=== PATIENT | male | born 1945 | race Two or more races ===

== ENCOUNTER 2017-06-14 07:53 | Inpatient (IN) | payer OTHER ==
[~2017-06-14] VITALS: Ht 182.9 cm; Wt 79.4 kg
[2017-06-14] MEDS ORDERED: MIDAZOLAM HCL 2 MG/2ML VIAL ONE (09:37)
[2017-06-14] MEDS ORDERED: FENTANYL PF 100MCG/2ML AMPUL ONE (09:37)
[2017-06-14] MEDS ORDERED: TRANEXAMIC ACID 3,000 MG in SODIUM CHLORIDE IRRIG SOLUTION 70 ML IR ONE (10:00)
[2017-06-14] MEDS ORDERED: BACITRACIN 50000 UNITS/VIAL ONE (10:08)
[2017-06-14 12:00] VITALS: BP 138/70
[2017-06-14 12:30] VITALS: BP 141/79
[2017-06-14] MEDS ORDERED: COLACE 250 MG CAPSULE PO PRN (12:30)
[2017-06-14] MEDS ORDERED: AMBIEN 5 MG TABLET PO PRN (12:30)
[2017-06-14] MEDS ORDERED: HYDROMORPHONE 1 MG/1 ML DISP.SYRIN IV PRN (12:30)
[2017-06-14] MEDS ORDERED: HYDROCODONE/APAP 5/325MG 1 EACH TABLET PO PRN ×3 (12:30→18:00)
[2017-06-14] MEDS ORDERED: IV LR 1000 ML 1,000 ML IV PRN (12:30)
[2017-06-14] MEDS ORDERED: DULCOLAX 10 MG/SUPP.RECT RC PRN (12:30)
[2017-06-14] MEDS ORDERED: TYLENOL 650 MG TABLET PO PRN (12:30)
[2017-06-14] MEDS ORDERED: ZOFRAN 4mg/2ML IV PRN (12:30)
[2017-06-14] MEDS ORDERED: SENOKOT 8.6 MG TABLET PO PRN (12:30)
[2017-06-14] MEDS ORDERED: OLME40TA3 PO (14:17)
[2017-06-14 16:00] VITALS: BP 150/77
[2017-06-14] MEDS ORDERED: MORPHINE SULFATE INJ 10 MG/ML DISP.SYRIN IV PRN (16:30)
[2017-06-14] MEDS ORDERED: CLONIDINE HCL 0.1 MG TABLET PO PRN (16:30)
[2017-06-14] MEDS ORDERED: diphenhydrAMINE HCL 25 MG CAPSULE PO PRN (16:30)
[2017-06-14] MEDS ORDERED: MAG HYDROX/AL HYDROX/SIMETH 30 ML UDC PO PRN ×2 (16:30→18:00)
[2017-06-14] MEDS: oxyCODONE IR immediate release 5 MG CAPSULE PO PRN ×2 (17:30→20:21)
[2017-06-14] MEDS: DOCUSATE SODIUM 100 MG CAPSULE PO SCH (17:30)
[2017-06-14] MEDS: RIVAROXABAN 10 MG TABLET PO SCH (17:31)
[2017-06-14] MEDS ORDERED: MAGNESIUM HYDROXIDE 30 ML UDC PO PRN (18:00)
[2017-06-14] MEDS ORDERED: ACETAMINOPHEN 325 MG TABLET PO PRN (18:00)
[2017-06-14] MEDS ORDERED: Z GUARD REMEDY 2 OZ OINT TP PRN (18:00)
[2017-06-14] MEDS ORDERED: ONDANSETRON HCL/PF 4 MG/2 ML VIAL IVP PRN (18:00)
[2017-06-14] MEDS ORDERED: ZOLPIDEM TARTRATE 5 MG TABLET PO PRN (18:00)
[2017-06-14] MEDS: LOSARTAN POTASSIUM 50 MG TABLET PO SCH (18:50)
--- NOTE | 2017-06-14 19:30 | NUR ---
MS/LENS MATCHER; RECEIVED IN BED SLEEPING. BREATHING NON LABORED. HL INTACT. WITH O2 2L NC ON. WITH FC INTACT CLEAR YELLOW URINE. RT HI DRESSING INTACT WITH ABDUCTION PILLOW IN BETWEEN LEGS. BED ON LOWER POSITION AND LOCKED FOR SAFETY. SIDE RAILS ARE UP FOR SAFETY. WILL CONTINUE TO MONITOR. CALL LIGHT WITHIN REACH.
[2017-06-14 20:00] VITALS: BP 145/76
--- NOTE | 2017-06-14 20:20 | NUR ---
MS/GLASS SCULLION; OXY IR 15 MG PO Q3 PRN GIVEN FOR C/O PAIN RT HIP.
[2017-06-14] MEDS: ANCEF 1 G in IV D5W 50 ML IV SCH ×2 (20:37→20:50)
[2017-06-14] MEDS: PANTOPRAZOLE 40 MG TABLET.DR PO SCH (22:05)
[2017-06-15] MEDS: ANCEF 1 G in IV D5W 50 ML IV SCH (03:52)
[2017-06-15] MEDS: oxyCODONE IR immediate release 5 MG CAPSULE PO PRN ×3 (05:55→21:18)
--- NOTE | 2017-06-15 05:55 | NUR ---
MS/EDGER TECHNICIAN; C/O PAIN RT HIP , BP 130/ 56 ; OXY IR 10 MG PO Q3 PRN GIVEN.
[2017-06-15 06:53] LABS: BASOPHILS % (AUTO) 0.3 % (0.0-2.0); EOSINOPHILS % (AUTO) 0.6 % (0.0-6.0); HEMATOCRIT 29 % (39-51); HEMOGLOBIN 9.8 g/dL (13.5-17.5); LYMPHOCYTES # (AUTO) 0.8 /CMM (0.8-4.8); LYMPHOCYTES % (AUTO) 10.9 % (20.0-44.0); MEAN CORPUSCULAR HEMOGLOBIN 30 PG (26.0-33.0); MEAN CORPUSCULAR HGB CONC 34 g/dl (31.0-36.0); MEAN CORPUSCULAR VOLUME 89 fL (80-96); MONOCYTES # (AUTO) 1.1 /CMM (0.1-1.30); MONOCYTES % (AUTO) 14.9 % (2.0-12.0); NEUTROPHILS # (AUTO) 5.2 /CMM (1.8-8.9); NEUTROPHILS % (AUTO) 73.3 % (43.0-81.0); PLATELET COUNT (AUTO) 208 /CMM (150-450); RDW COEFFICIENT OF VARIATION 16.3 (11.5-15.0); RED BLOOD CELL COUNT(AUTO) 3.24 MIL/uL (4.5-6.0); WHITE BLOOD COUNT (AUTO) 7.1 K/uL (4.3-11.0)
--- NOTE | 2017-06-15 07:00 | NUR ---
MS/WASTEWATER MANAGER; SLEPT FAIRLY. BREATHING NON LABORED. WILL ENDORSE TO THE DAY SHIFT NURSE.
[2017-06-15 07:16] LABS: ALANINE AMINOTRANSFERASE 19 U/L (12-78); ALBUMIN 3.1 g/dL (3.4-5.0); ALKALINE PHOSPHATASE 68 U/L (46-116); ASPARTATE AMINOTRANSFERASE 24 U/L (15-37); BILIRUBIN,TOTAL 0.7 mg/dL (0.2-1.0); CALCIUM, SERUM 9.5 mg/dL (8.5-10.1); CARBON DIOXIDE 31 mmol/L (21-32); CHLORIDE 102 mmol/L (98-107); GLUCOSE 127 mg/dL (74-106); MAGNESIUM 1.9 mg/dL (1.8-2.4); PHOSPHORUS 3.8 mg/dL (2.5-4.9); POTASSIUM 4.8 mmol/L (3.5-5.1); SODIUM SERUM 136 mmol/L (136-145); TOTAL PROTEIN, SERUM 5.9 g/dL (6.4-8.2); UREA NITROGEN, BLOOD 15 mg/dL (7-18)
[2017-06-15 07:30] LABS: CHOLESTEROL 101 mg/dL (<200); HDL CHOLESTEROL 52 mg/dL (40-60); LDL 41 mg/dL (0-99); TRIGLYCERIDES 38 mg/dL (30-150)
[2017-06-15 08:00] VITALS: BP 126/66
--- NOTE | 2017-06-15 08:00 | NUR ---
MS RN NOTES PATIENT IN BED RESTING NO SOB OR ACUTE DISTRESS NOTED. PERIPHERAL IV INTACT PATENT. PATIENT ALERT, ORIENTED COMPLAINING OF PAIN 8/10 TO RIGHT HIP. PATIENT PREFERS PO PILL FOR PAIN CONTROL. PATIENTS BED IN LOW LOCKED POSITION. CALL LIGHT WITHIN REACH WILL CONTINUE TO MONITOR.
[2017-06-15] MEDS: DOCUSATE SODIUM 100 MG CAPSULE PO SCH ×2 (08:11→17:07)
[2017-06-15] MEDS: LOSARTAN POTASSIUM 50 MG TABLET PO SCH (08:13)
[2017-06-15] MEDS: IV D5/0.45 NACL 1,000 ML IV PRN ×2 (09:38→23:57)
--- NOTE | 2017-06-15 10:30 | NUR ---
MS RN NOTES PATIENT SEEN BY DR. JACKSON WAITING FOR PT, PER DOCTOR MANUEL ADMINISTER MORPHINE 4MG IV FOR PATIENTS COMFORT DURING PT. NOTED AND ADMINISTERED. WILL CONTINUE TO MONITOR.
--- NOTE | 2017-06-15 11:00 | NUR ---
MS RN NOTES PATIENT NOTED SITTING IN CHAIR IN HIS ROOM WITH PT AT BEDSIDE, UNRESPONSIVE , WITH COLD CLAMMY SKIN, PALE. PATIENT TRANSFERRED TO BED, VS CHECKED: BP 145/66 HR: 100, SATURATING AT 98%. PATIENT BS 144MG/DL. PATIENT NOTED TO OPEN EYES AND STARTED RESPONDING TO QUESTIONS. PATIENT PLACED ON MONITOR FOR OBSERVATION. DR. POE NOTIFIED ORDERS FOR STAT EKG. STARTED ON NASAL CANULA AT 2L/M . PATIENT NOTED TO RETURN TO NORMAL SELF. ALERT, ORIENTED X3. VS WNL. WILL CONTINUE TO MONITOR.
--- NOTE | 2017-06-15 11:50 | NUR ---
MS RN NOTES PATIENT IN BED RESTING ALERT, ORIENTED X3 NO SOB OR ACUTE DISTRESS NOTED. PATIENT SEEN AND EVALUATED BY MD ORDERS TO GIVE BOLUS NS , NOTED AND CARRIED OUT.
[2017-06-15 12:00] VITALS: BP 114/56
[2017-06-15] MEDS ORDERED: IV NS 0.9% 1,000 ML BAG IV ONE (12:00)
[2017-06-15 16:00] VITALS: BP 98/50
[2017-06-15] MEDS: RIVAROXABAN 10 MG TABLET PO SCH (17:08)
[2017-06-15] MEDS ORDERED: MORPHINE SULFATE INJ 10 MG/ML DISP.SYRIN IV PRN (17:30)
--- NOTE | 2017-06-15 18:21 | NUR ---
MS RN NOTES PATIENT IN BED RESTING NO SOB OR ACUTE DISTRESS NOTED. PATIENT ALERT, ORIENTED X4. PERIPHERAL IV INTACT PATENT. PATIENT REPORTS PAIN AT 5/10 REFUSES PAIN MEDICATION AT THIS TIME. EDUCATION PROVIDED ON BENEFITS AND PROPER USE ON NARCOTICS. ALL DUE MEDICATIONS ADMINISTERED. ALL NEEDS MET. WILL ENDORSE CARE TO PM SHIFT.
--- NOTE | 2017-06-15 19:30 | NUR ---
MS ALTA INITIAL NOTES RECEIVED REPORT FROM AM NURSE JESSICA AND SEEN PT LYING IN BED WITHOUT ANY DISCOMFORT NOTED. WATCHING TV AT THIS TIME. STILL WITH IVF OF D51/2 NS AT 75ML/HR ON HIS LEFT WRIST PATENT AND INTACT. ENCOURAGE HIM TO USED THE CALL LIGHT IF HE NEEDS SOME HELP OR NEED THE NURSE FOR PAIN MEDS. DRESSING DRY AND INTACT. AND HAVE ABDUCTION PILLOWS BETWEEN HIS LEGS. KEPT HIM WARM AND COMFORTABLE AT ALL TIMES. WILL CONTINUE TO MONITOR. PLACE CALL LIGHT AT REACH.
[2017-06-15 20:00] VITALS: BP 111/62
--- NOTE | 2017-06-15 21:20 | NUR ---
DICE SPOTTER/NOTES,C/O PAIN C/O RIGHT HIP PAIN 01/28, OXY -IR PO GIVEN ORDERED. KEPT HIM WARM AND COMFORTABLE AT ALL TIMES. RE-ASSESS LATER. PLACE CALL LIGHT AT REACH.
--- NOTE | 2017-06-15 22:20 | NUR ---
JUNIOR PROJECT COORDINATOR/NOTES RE- ASSESSMENT CHECKED PT SLEEPING COMFORTABLY IN BED AT THIS TIME. RESPIRATION EVEN AND NON-LABORED. IVF STILL INFUSING. KEPT HER WARM AND COMFORTABLE AT ALL TIMES. WILL CONTINUE TO MONITOR. PLACE CALL LIGHT AT REACH.
[2017-06-15] MEDS: PANTOPRAZOLE 40 MG TABLET.DR PO SCH (23:56)
[2017-06-16] VITALS: BP 118/62
--- NOTE | 2017-06-16 07:28 | NUR ---
MS GRINDER SET UP OPERATOR INTERNAL CLOSING NOTES PT BACK TO REST AFTER MORNING CARE DONE. STABLE BLANCHE THE NIGHT AND SLEPT WELL AFTER PAIN MEDS GIVEN . HEPLOCK AT THIS TIME BECAUSE PT TOLERATED PO WELL. ALL DUE MEDS GIVEN AND ALL NEEDS MET. KEPT HIM WARM AND COMFORTABLE AT ALL TIMES. PLACE CALL LIGHT AT REACH. ENDORSE TO AM NURSE FOR CONTINUITY OF CARE.
[2017-06-16 08:00] VITALS: BP 124/69
--- NOTE | 2017-06-16 08:00 | NUR ---
RN INITIAL NOTES: REC'D PT FROM [facility]. PT A/O X 4, NOT IN ANY DISTRESS, ABLE TO MAKE NEEDS KNOWN. ON O2 AT 2LPM/NC, NO SOB. PT S/P R THR 06/14/17 W/ DRESSING CLEAN, DRY & INTACT. HAS L WRIST G20 PL W/ D5 1/2 NS X 75 CC/HR INFUSING WELL. PROVIDED COMFORT & SAFETY MEASURES. BED KEPT LOW & IN LOCKED POS. CALL LIGHT PLACED W/IN REACH. WILL CONTINUE TO MONITOR & ATTEND PT'S NEEDS.
[2017-06-16] MEDS: DOCUSATE SODIUM 100 MG CAPSULE PO SCH ×2 (08:47→17:24)
[2017-06-16] MEDS: LOSARTAN POTASSIUM 50 MG TABLET PO SCH (08:47)
--- NOTE | 2017-06-16 09:30 | NUR ---
RN NOTES: PER DR. BAXTER MAY DC CURRENT IVF.
--- NOTE | 2017-06-16 10:30 | NUR ---
RN NOTES: POST THERAPY, WHILE PT SITTING ON THE BEDSIDE CHAIR, PT C/O LIGHTHEADEDNESS AND MOMENTARILY PASSED OUT. RAPID RESPONSE INITIATED BUT CANCELLED BECAUSE WHEN PT PUT BACK TO BED HE VERBALIZED THAT HE IS DOING OKAY. PT IS A/O X3, DENIES ANY DISTRESS/PAIN. PT PLACED ON O2 AT 2LPM/NC. VS RECHECKED. BP 120/68, HR 68, RR 18, O2 SAT 95%. WILL CONTINUE TO MONITOR AND OBSERVE PT. Addendum: 06/16/17 at 1454 by JUAN WALSH RN ADDENDUM: ORTHOSTATIC HYPOTENSION TAKEN: LYING 120/68, STANDING 116/74, SITTING 110/62. DR. BAXTER MADE AWARE.
--- NOTE | 2017-06-16 15:41 | NUR ---
RN NOTES: WOUND DRESSING CHANGED BY SAAD. SURGICAL SITE CLEAN AND DRY W/ NO S/SX OF INFECTION NOTED.
[2017-06-16 16:00] VITALS: BP 122/55
[2017-06-16] MEDS: oxyCODONE IR immediate release 5 MG CAPSULE PO PRN ×2 (17:25)
[2017-06-16] MEDS: RIVAROXABAN 10 MG TABLET PO SCH (17:33)
--- NOTE | 2017-06-16 18:43 | NUR ---
RN CLOSING NOTES: NO ACUTE CHANGES NOTED W/IN SHIFT. PT TOLERATED O2 AT 2LPM/NC, NO SOB. S/P R THR SURGICAL SITE W/ DRESSING KEPT CLEAN, DRY & INTACT. WEDGE KEPT ON IN BETWEEN PT'S LEGS. L WRIST G20 SL FLUSHED, KEPT PATENT & INTACT W/ NO S/SX OF INFECTION/INFILTRATION NOTED. PT KEPT WELL RESTED. NEEDS ATTENDED. BED KEPT LOW & IN LOCKED POS. CALL LIGHT PLACED W/IN REACH. WILL ENDORSED TO PM RN FOR ANGEL.
--- NOTE | 2017-06-16 19:30 | NUR ---
MS RN OPENING NOTES: RECEIVED PT IN BED AND IS RESTING COMFORTABLY. PT HAS HOB ELEVATED AND IS ON 2LPM VIA NC AND IS TOLERATING WELL. PT IS S/P R SURGICAL SITE. PT HAS IV ON L WRIST #20G AND IS PATENT AND INTACT. PT CURRENTLY H/L. CALL LIGHT WITHIN PT'S REACH. BED KEPT IN LOW, LOCKED POSITION, AND SIDE RAILS X 2 UP. WILL CONTINUE TO MONITOR PT.
[2017-06-16 20:00] VITALS: BP 103/50
[2017-06-16] MEDS: PANTOPRAZOLE 40 MG TABLET.DR PO SCH (21:27)
--- NOTE | 2017-06-17 06:48 | NUR ---
MS RN CLOSING NOTES: ALL NEEDS WERE ATTENDED AND ANTICIPATED FOR. PT OFFERED MEDICATION BUT REFUSED AT THE TIMES WHEN OFFERED. PT IN BED AND IS RESTING COMFORTABLY. PT HAS HOB ELEVATED AND IS ON 2LPM VIA NC AND IS TOLERATING WELL. PT IS S/P R SURGICAL SITE. PT HAS IV ON L WRIST #20G AND IS PATENT AND INTACT. PT CURRENTLY H/L. PT ALSO HAS IMMOBILIZER IN BETWEEN HIS LEGS. SCDS IN PLACE WELL. CALL LIGHT WITHIN PT'S REACH. BED KEPT IN LOW, LOCKED POSITION, AND SIDE RAILS X 2 UP. URINAL OUTPUT WAS 630ML. WILL ENDORSE TO AM NURSE FOR ANGEL.
--- NOTE | 2017-06-17 07:44 | NUR ---
MS RN: INITIAL NOTE RECEIVED PT A/OX4. S/P R TOTAL HIP REPLACEMENT ON 06/14/17. NO DISTRESS NOTED. NO SOB NOTED. ON 2 L NC SATING AT 96%. USES URINAL. DRESSING CHANGE DONE 06/06/17. L WRIST #20 S/L. NO PAIN NOTED. RESTING COMFORTABLY IN BED. CALL LIGHT WITHIN REACH.
[2017-06-17 08:00] VITALS: BP 127/58
[2017-06-17 08:40] VITALS: BP 128/65
[2017-06-17] MEDS: DOCUSATE SODIUM 100 MG CAPSULE PO SCH (08:40)
[2017-06-17] MEDS: LOSARTAN POTASSIUM 50 MG TABLET PO SCH (08:40)
[2017-06-17] MEDS ORDERED: BISA10SU8 RC (09:52)
[2017-06-17] MEDS ORDERED: OXYC5CAP3 PO (09:52)
[2017-06-17] MEDS ORDERED: DOCU-25 PO (09:52)
[2017-06-17] MEDS ORDERED: SENN8.6T6 PO (09:52)
[2017-06-17] MEDS ORDERED: RIVA10TA PO (09:52)
[2017-06-17] MEDS: oxyCODONE IR immediate release 5 MG CAPSULE PO PRN (11:36)
--- NOTE | 2017-06-17 12:15 | NUR ---
MS RN: DISCHARGE NOTE PT A/OX4. DISCHARGED TO [facility]. CALLED IN REPORT TO KIANA GIBSON. PT ON 2 L NC PRN. NO DISTRESS NOTED. NO SOB NOTED. PAIN CONTROLLED WITH PAIN MEDICATION. OXYCOTON 15MG GIVEN AT 1132. GOING FOR REHAB DUE TO R TOTAL HIP REPLACEMENT ON 06/14/17. ABDUCTOR PILLOW PLACED BETWEEN LEGS. IV ON L FA D/C. SITE CLEAR AND NO REDNESS OR BLEEDING NOTED. PT TOOK ALL MEDICATIONS ON TIME. NO ADVERSE REACTIONS NOTED. TAKEN BY TWO EMT. ALL VLAUBALES ACCOUNTED FOR. ALL DISCHARGE INFORMATION SIGNED BY PATIENT. COPIES SENT TO [facility].
== END 2017-06-17 12:15 | DRG 470 ==
LOC: DS 07:53 → MED 12:26
PROVIDERS: ADMIT Specialist; ATTEND Internal Medicine
PROC: 0SR90JZ Replacement of Right Hip Joint with Synthetic Substitute, Open Approach (ICD-10-PCS; principal; 2017-06-14 12:15)
DX: M16.11 Unilateral primary osteoarthritis, right hip (principal); D64.9 Anemia, unspecified; I10 Essential (primary) hypertension; K21.9 Gastro-esophageal reflux disease without esophagitis; R73.9 Hyperglycemia, unspecified; R55 Syncope and collapse
CPT/HCPCS: 36415; 71010-TC; 80053-TC; 80061-TC; 82962-TC; 83735-TC; 84100-TC; 85025-TC; 86850-TC; 86921-TC; 87081-TC; 88305-TC; 88311-TC; 93307-TC; 97116-TC; 97530-TC; A4217; A6209; A6402; J0690; J1170; J1885; J2250; J2270; J2370; J2405; J2704; J3010; J3490; J7030; J7050; J7060; J7120; Z7610